=== PATIENT | female | born 1945 | race Caucasian/White ===

== ENCOUNTER → 2019-07-28 | Outpatient (REF) | LOC: M LAB LCGH 17:25 | PROVIDERS: ATTEND Surgery | DX: K63.5 Polyp of colon (principal); K31.7 Polyp of stomach and duodenum; Z80.0 Family history of malignant neoplasm of digestive organs ==

== ENCOUNTER → 2022-06-02 | Outpatient (REF) | payer MEDICARE, BC, OTHER | LOC: M SFHCDERM 09:10 | PROVIDERS: ATTEND Physician Assistant | DX: L85.9 Epidermal thickening, unspecified (principal); L57.8 Other skin changes due to chronic exposure to nonionizing radiation ==

== ENCOUNTER → 2023-06-03 | Outpatient (REF) | payer MEDICARE, BC | LOC: M SFHCDERM 17:20 | PROVIDERS: ATTEND Physician Assistant | DX: D22.9 Melanocytic nevi, unspecified (principal) ==